=== PATIENT | male | born 1935 | race Caucasian/White ===

== ENCOUNTER → 2017-12-01 | Outpatient (CLI) | payer MEDICARE, OTHER ==
[2017-12-01 10:14] LABS: BASO # 0.1 (0.02-0.10); HEMATOCRIT 45.5 % (42.0-52.0); HEMOGLOBIN 14.8 g/dL (13.5-18.0); LYMPH# 2.1 (1.50-4.00); MEAN CELL VOLUME 89 fl (78-100); MEAN CORPUSCULAR HEMOGLOBIN 29 pg (27-31); MEAN CORPUSCULAR HGB CONC 33 g/dL (33-37); MEAN PLATELET VOLUME 9.8 fl (7.4-10.4); MONO # 0.9 (0.20-0.80); PLATELET COUNT 258 K/mm3 (130-400); RED BLOOD COUNT 5.11 M/mm3 (4.20-5.60); RED CELL DISTRIBUTION WIDTH 13.7 % (11.5-14.5); WHITE BLOOD COUNT 9.8 K/mm3 (4.8-10.8)
[2017-12-01 10:18] LABS: EOS # 0.7 (0.04-0.40); EOS % 7.1 % (0.0-4.0)
[2017-12-01 10:38] LABS: ALBUMIN 4.1 g/dL (3.5-5.0); BUN/CREATININE RATIO 13.9 (6.0-26.0); CALCIUM 9.4 mg/dL (8.4-10.2); POTASSIUM 4.7 mmol/L (3.6-5.0); TOTAL BILIRUBIN 0.6 mg/dL (0.2-1.3); TOTAL PROTEIN 8.3 g/dL (6.3-8.2)
[2017-12-01 11:18] LABS: ERYTHROCYTE SEDIMENTATION RATE 55 mm/hr (0-20)
== END ==
LOC: LAB 10:00
PROVIDERS: Internal Medicine
DX: Z12.5 Encounter for screening for malignant neoplasm of prostate (principal); R05 Cough; E78.2 Mixed hyperlipidemia

== ENCOUNTER → 2018-01-01 | Outpatient (CLI) | payer MEDICARE, OTHER | LOC: LAB 15:48 | DX: S61.309A Unspecified open wound of unspecified finger with damage to nail, initial encounter (principal) ==

== ENCOUNTER → 2018-02-19 | Outpatient (CLI) | payer MEDICARE, OTHER | LOC: RAD 08:21 | DX: M17.11 Unilateral primary osteoarthritis, right knee (principal); M25.461 Effusion, right knee ==

== ENCOUNTER → 2018-02-23 | Outpatient (CLI) | payer MEDICARE, OTHER | LOC: RAD 11:39 | DX: M22.41 Chondromalacia patellae, right knee (principal); M71.21 Synovial cyst of popliteal space [Baker], right knee; S83.241A Other tear of medial meniscus, current injury, right knee, initial encounter; M25.461 Effusion, right knee; Z87.828 Personal history of other (healed) physical injury and trauma ==

== ENCOUNTER → 2018-04-13 | Outpatient (CLI) | payer MEDICARE, OTHER ==
[~2018-04-13] VITALS: Ht 182.9 cm; Wt 87.3 kg
[~2018-04-13] MED LIST: ALEVE220 M1 PO; GLUCOSAMINE PO
[2018-04-13 09:19] LABS: HEMATOCRIT 44.6 % (42.0-52.0); HEMOGLOBIN 14.9 g/dL (13.5-18.0); MEAN CELL VOLUME 88 fl (78-100); MEAN CORPUSCULAR HEMOGLOBIN 29 pg (27-31); MEAN CORPUSCULAR HGB CONC 33 g/dL (33-37); MEAN PLATELET VOLUME 9.8 fl (7.4-10.4); PLATELET COUNT 228 K/mm3 (130-400); RED BLOOD COUNT 5.06 M/mm3 (4.20-5.60); RED CELL DISTRIBUTION WIDTH 13.4 % (11.5-14.5); WHITE BLOOD COUNT 8.5 K/mm3 (4.8-10.8)
[2018-04-13 09:36] LABS: PROTHROMBIN TIME 10.3 SECONDS (9.0-12.0)
[2018-04-13 09:42] LABS: ALBUMIN 4.5 g/dL (3.5-5.0); CALCIUM 9.6 mg/dL (8.4-10.2); TOTAL BILIRUBIN 0.6 mg/dL (0.2-1.3); TOTAL PROTEIN 8.3 g/dL (6.3-8.2)
[2018-04-13 09:50] VITALS: BP 146/78
[2018-04-13 10:19] LABS: LYMPHOCYTE 25 % (20-51); MONOCYTE 3 % (3-10); NEUTROPHILS 52 % (42-75)
[2018-04-13 10:34] LABS: PH-URINE 6.5 (5.0 - 8.0); URINE APPEARANCE CLEAR; URINE COLOR YELLOW
[2018-04-13 10:35] LABS: URINE BILIRUBIN NEGATIVE (NEGATIVE); URINE BLOOD 50 ery/uL (NEGATIVE); URINE GLUCOSE NEGATIVE (NEGATIVE); URINE KETONE NEGATIVE (NEGATIVE); URINE LEUKOCYTE ESTERASE NEGATIVE (NEGATIVE); URINE MUCUS PRESENT (NOT PRESENT); URINE NITRATE NEGATIVE (NEGATIVE); URINE PROTEIN(semi-quant) TRACE mg/dL (NEGATIVE); URINE UROBILINOGEN NORMAL (NORMAL); URINE WBC 0-1 /hpf (0-3)
== END ==
LOC: LAB 08:58
PROVIDERS: Internal Medicine
DX: Z01.818 Encounter for other preprocedural examination (principal); J84.9 Interstitial pulmonary disease, unspecified; M17.0 Bilateral primary osteoarthritis of knee

== ENCOUNTER 2018-06-18 11:30 | Outpatient (RCR) | payer MEDICARE, OTHER ==
[2018-04-13 09:50] VITALS: BP 146/78
== END 2018-08-06 | disposition home or self-care (01) ==
LOC: PT
DX: Z47.1 Aftercare following joint replacement surgery (principal); Z96.651 Presence of right artificial knee joint
CPT/HCPCS: G8978-GP; G8979-GP

== ENCOUNTER → 2019-04-02 | Outpatient (CLI) | payer MEDICARE, OTHER ==
[2018-04-13 09:50] VITALS: BP 146/78
[2019-04-02 10:11] LABS: BASO # 0.1 (0.02-0.10); EOS # 0.4 (0.04-0.40); EOS % 3.7 % (0.0-4.0); HEMATOCRIT 43.4 % (42.0-52.0); HEMOGLOBIN 14.1 g/dL (13.5-18.0); LYMPH# 2.2 (1.50-4.00); MEAN CELL VOLUME 89 fl (78-100); MEAN CORPUSCULAR HEMOGLOBIN 29 pg (27-31); MEAN CORPUSCULAR HGB CONC 33 g/dL (33-37); MEAN PLATELET VOLUME 9.3 fl (7.4-10.4); MONO # 0.9 (0.20-0.80); NEU # 6.3 (1.40-6.50); PLATELET COUNT 270 K/mm3 (130-400); RED BLOOD COUNT 4.86 M/mm3 (4.20-5.60); RED CELL DISTRIBUTION WIDTH 13.2 % (11.5-14.5); WHITE BLOOD COUNT 9.9 K/mm3 (4.8-10.8)
[2019-04-02 10:20] LABS: ALBUMIN 3.9 g/dL (3.4-4.8)
[2019-04-02 10:21] LABS: POTASSIUM 4.3 mmol/L (3.5-5.1)
[2019-04-02 10:22] LABS: CALCIUM 9.8 mg/dL (8.3-10.5)
[2019-04-02 10:23] LABS: TOTAL PROTEIN 8.2 g/dL (6.2-8.1)
[2019-04-02 10:25] LABS: TOTAL BILIRUBIN 0.6 mg/dL (0.2-1.2)
[2019-04-02 10:30] LABS: URINE APPEARANCE CLEAR; URINE BILIRUBIN NEGATIVE (NEGATIVE); URINE BLOOD 50 ery/uL (NEGATIVE); URINE COLOR YELLOW; URINE GLUCOSE NEGATIVE (NEGATIVE); URINE KETONE NEGATIVE (NEGATIVE); URINE LEUKOCYTE ESTERASE NEGATIVE (NEGATIVE); URINE MUCUS PRESENT (NOT PRESENT); URINE NITRATE NEGATIVE (NEGATIVE); URINE PROTEIN(semi-quant) TRACE mg/dL (NEGATIVE); URINE UROBILINOGEN NORMAL (NORMAL); URINE WBC 0-1 /hpf (0-3)
== END ==
LOC: LAB 10:02
PROVIDERS: Physician Assistant
DX: J84.9 Interstitial pulmonary disease, unspecified (principal); M46.84 Other specified inflammatory spondylopathies, thoracic region; I87.8 Other specified disorders of veins; N20.0 Calculus of kidney; I70.0 Atherosclerosis of aorta

== ENCOUNTER → 2019-04-05 | Outpatient (CLI) | payer MEDICARE, OTHER ==
[2018-04-13 09:50] VITALS: BP 146/78
[2019-04-05 15:14] LABS: URINE APPEARANCE HAZY; URINE BILIRUBIN NEGATIVE (NEGATIVE); URINE COLOR YELLOW; URINE GLUCOSE NEGATIVE (NEGATIVE); URINE KETONE NEGATIVE (NEGATIVE); URINE PROTEIN(semi-quant) TRACE mg/dL (NEGATIVE); URINE UROBILINOGEN NORMAL (NORMAL)
[2019-04-05 15:15] LABS: URINE BLOOD 50 ery/uL (NEGATIVE); URINE LEUKOCYTE ESTERASE NEGATIVE (NEGATIVE); URINE MUCUS PRESENT (NOT PRESENT); URINE NITRATE NEGATIVE (NEGATIVE); URINE WBC 0-1 /hpf (0-3)
== END ==
LOC: LAB 14:20
PROVIDERS: Family Medicine
DX: R31.9 Hematuria, unspecified (principal)

== ENCOUNTER → 2019-04-22 | Outpatient (CLI) | payer MEDICARE, OTHER ==
[2018-04-13 09:50] VITALS: BP 146/78
== END | disposition home or self-care (01) ==
LOC: RAD 08:21
DX: M43.16 Spondylolisthesis, lumbar region (principal); M47.816 Spondylosis without myelopathy or radiculopathy, lumbar region; K57.30 Diverticulosis of large intestine without perforation or abscess without bleeding; N20.0 Calculus of kidney; N40.0 Benign prostatic hyperplasia without lower urinary tract symptoms
CPT/HCPCS: Q9967

== ENCOUNTER → 2020-02-03 | Outpatient (CLI) | payer MEDICARE, OTHER ==
[2018-04-13 09:50] VITALS: BP 146/78
[2020-02-03 17:45] LABS: BASO # 0.1 (0.02-0.10); EOS # 0.3 (0.04-0.40); EOS % 3.2 % (0.0-4.0); HEMATOCRIT 42.7 % (42.0-52.0); HEMOGLOBIN 14.2 g/dL (13.5-18.0); LYMPH# 2.5 (1.50-4.00); MEAN CELL VOLUME 89 fl (78-100); MEAN CORPUSCULAR HEMOGLOBIN 30 pg (27-31); MEAN CORPUSCULAR HGB CONC 33 g/dL (33-37); MEAN PLATELET VOLUME 9.7 fl (7.4-10.4); MONO # 0.7 (0.20-0.80); NEU # 4.2 (1.40-6.50); PLATELET COUNT 243 K/mm3 (130-400); RED BLOOD COUNT 4.81 M/mm3 (4.20-5.60); RED CELL DISTRIBUTION WIDTH 13.2 % (11.5-14.5); WHITE BLOOD COUNT 7.8 K/mm3 (4.8-10.8)
[2020-02-03 17:56] LABS: ALBUMIN 4.2 g/dL (3.4-4.8); POTASSIUM 4.4 mmol/L (3.5-5.1)
[2020-02-03 17:57] LABS: CALCIUM 9.3 mg/dL (8.3-10.5)
[2020-02-03 17:58] LABS: TOTAL PROTEIN 7.4 g/dL (6.2-8.1)
[2020-02-03 18:00] LABS: TOTAL BILIRUBIN 0.4 mg/dL (0.2-1.2)
[2020-02-03 18:58] LABS: ERYTHROCYTE SEDIMENTATION RATE 20 mm/hr (0-20)
== END ==
LOC: LAB 17:21
PROVIDERS: Internal Medicine
DX: Z12.5 Encounter for screening for malignant neoplasm of prostate (principal); E78.2 Mixed hyperlipidemia; N20.0 Calculus of kidney

== ENCOUNTER → 2021-03-13 | Outpatient (CLI) | payer MEDICARE, OTHER ==
[2021-03-13 10:36] LABS: BASO # 0.07 K/mm3 (0.02-0.10); EOS # 0.16 K/mm3 (0.04-0.40); EOS % 2.2 % (0.0-4.0); HEMATOCRIT 47.9 % (42.0-52.0); HEMOGLOBIN 15.9 g/dL (13.5-18.0); LYMPH# 1.99 K/mm3 (1.50-4.00); MEAN CELL VOLUME 89 fl (78-100); MEAN CORPUSCULAR HEMOGLOBIN 30 pg (27-31); MEAN CORPUSCULAR HGB CONC 33 g/dL (33-37); MEAN PLATELET VOLUME 9.6 fl (7.4-10.4); MONO # 0.59 K/mm3 (0.20-0.80); NEU # 4.53 K/mm3 (1.40-6.50); PLATELET COUNT 242 K/mm3 (130-400); RED BLOOD COUNT 5.36 M/mm3 (4.20-5.60); RED CELL DISTRIBUTION WIDTH 12.6 % (11.5-14.5); WHITE BLOOD COUNT 7.4 K/mm3 (4.8-10.8)
[2021-03-13 10:40] LABS: ALBUMIN 4.4 g/dL (3.4-4.8)
[2021-03-13 10:41] LABS: POTASSIUM 4.9 mmol/L (3.5-5.1)
[2021-03-13 10:42] LABS: CALCIUM 9.7 mg/dL (8.3-10.5)
[2021-03-13 10:43] LABS: TOTAL PROTEIN 8.2 g/dL (6.2-8.1)
[2021-03-13 10:45] LABS: TOTAL BILIRUBIN 0.6 mg/dL (0.2-1.2)
[2021-03-13 11:34] LABS: ERYTHROCYTE SEDIMENTATION RATE 32 mm/hr (0-20)
== END ==
LOC: LAB 10:16
PROVIDERS: Internal Medicine
DX: Z12.5 Encounter for screening for malignant neoplasm of prostate (principal); G45.9 Transient cerebral ischemic attack, unspecified; K90.9 Intestinal malabsorption, unspecified; Z96.651 Presence of right artificial knee joint; I70.90 Unspecified atherosclerosis

== ENCOUNTER → 2021-03-27 | Outpatient (CLI) | payer MEDICARE, OTHER | LOC: VAS 06:44 → RAD 06:44 | DX: G45.9 Transient cerebral ischemic attack, unspecified (principal) | CPT/HCPCS: A9585 ==

== ENCOUNTER → 2021-03-29 | Outpatient (CLI) | payer MEDICARE, OTHER | LOC: VAS 14:16 → RAD 14:30 | DX: G45.9 Transient cerebral ischemic attack, unspecified (principal); M25.561 Pain in right knee ==

== ENCOUNTER → 2021-05-24 | Outpatient (CLI) | payer MEDICARE, OTHER | LOC: LAB 08:40 | DX: E53.8 Deficiency of other specified B group vitamins (principal) ==

== ENCOUNTER → 2021-09-14 | Outpatient (CLI) | payer MEDICARE, OTHER | LOC: VAS 12:35 → RAD 12:45 | DX: I80.251 Phlebitis and thrombophlebitis of right calf muscular vein (principal); I83.11 Varicose veins of right lower extremity with inflammation ==

== ENCOUNTER → 2021-11-13 | Outpatient (CLI) | payer MEDICARE, OTHER ==
[2021-11-13 12:09] LABS: BASO # 0.04 K/mm3 (0.02-0.10); EOS # 0.14 K/mm3 (0.04-0.40); EOS % 2.1 % (0.0-4.0); HEMATOCRIT 45.2 % (42.0-52.0); HEMOGLOBIN 15.1 g/dL (13.5-18.0); LYMPH# 1.47 K/mm3 (1.50-4.00); MEAN CELL VOLUME 88 fl (78-100); MEAN CORPUSCULAR HEMOGLOBIN 29 pg (27-31); MEAN CORPUSCULAR HGB CONC 33 g/dL (33-37); MEAN PLATELET VOLUME 9.7 fl (7.4-10.4); MONO # 0.83 K/mm3 (0.20-0.80); NEU # 4.32 K/mm3 (1.40-6.50); PLATELET COUNT 187 K/mm3 (130-400); RED BLOOD COUNT 5.14 M/mm3 (4.20-5.60); RED CELL DISTRIBUTION WIDTH 12.7 % (11.5-14.5); WHITE BLOOD COUNT 6.8 K/mm3 (4.8-10.8)
[2021-11-13 12:13] LABS: POTASSIUM 4.4 mmol/L (3.5-5.1)
[2021-11-13 12:14] LABS: CALCIUM 9.8 mg/dL (8.3-10.5)
[2021-11-13 12:16] LABS: TOTAL PROTEIN 8.2 g/dL (6.2-8.1)
[2021-11-13 12:17] LABS: TOTAL BILIRUBIN 0.6 mg/dL (0.2-1.2)
[2021-11-13 12:26] LABS: URINE COLOR AMBER
[2021-11-13 12:27] LABS: URINE APPEARANCE CLEAR; URINE BILIRUBIN NEGATIVE (NEGATIVE); URINE BLOOD 50 ery/uL (NEGATIVE); URINE GLUCOSE NEGATIVE (NEGATIVE); URINE KETONE NEGATIVE (NEGATIVE); URINE LEUKOCYTE ESTERASE NEGATIVE (NEGATIVE); URINE NITRATE NEGATIVE (NEGATIVE); URINE PROTEIN(semi-quant) TRACE (NEGATIVE); URINE UROBILINOGEN NORMAL (NORMAL)
[2021-11-13 12:28] LABS: URINE MUCUS PRESENT (NOT PRESENT)
== END ==
LOC: RAD 11:32
PROVIDERS: Nurse Practitioner Family
DX: K57.30 Diverticulosis of large intestine without perforation or abscess without bleeding (principal); N40.0 Benign prostatic hyperplasia without lower urinary tract symptoms; N32.9 Bladder disorder, unspecified; N20.0 Calculus of kidney; N28.1 Cyst of kidney, acquired; K44.9 Diaphragmatic hernia without obstruction or gangrene; R05.9 Cough, unspecified; Z20.822 Contact with and (suspected) exposure to COVID-19
CPT/HCPCS: Q9967

== ENCOUNTER → 2023-01-07 | Outpatient (CLI) | payer MEDICARE, OTHER ==
[~2023-01-07] MED LIST changes: +AMLODIPINE BESYL5 MG PO; +ASPIRIN E.C. 8181 MG PO; +ATORVASTATIN CA20 MG PO; +FARXIGA10 MG PO; +MULTIVITAMIN1 EACH PO; +NITROGLYCERIN0.4 M1 SL
== END ==
LOC: RAD 09:52
DX: R91.8 Other nonspecific abnormal finding of lung field (principal)

== ENCOUNTER 2023-06-19 12:47 | Emergency (ER) | payer MEDICARE, OTHER ==
[~2023-06-19] VITALS: Wt 68.9 kg
[~2023-06-19 12:47] MED LIST changes: +LOSARTAN POTASS50 M1 PO
[2023-06-19 13:15] VITALS: BP 136/72
[2023-06-19] MEDS ORDERED: Ondansetron 4 MG/2 ML VIAL IV ONE (13:15)
[2023-06-19] MEDS ORDERED: NS 1,000 ML IV SCH (13:15)
[2023-06-19 13:23] LABS: BASO # 0.07 K/mm3 (0.02-0.10); EOS # 0.18 K/mm3 (0.04-0.40); EOS % 1.9 % (0.0-4.0); HEMATOCRIT 41.9 % (42.0-52.0); HEMOGLOBIN 14.1 g/dL (13.5-18.0); LYMPH# 2.39 K/mm3 (1.50-4.00); MEAN CELL VOLUME 94 fl (78-100); MEAN CORPUSCULAR HEMOGLOBIN 32 pg (27-31); MEAN CORPUSCULAR HGB CONC 34 g/dL (33-37); MEAN PLATELET VOLUME 8.9 fl (7.4-10.4); NEU # 5.77 K/mm3 (1.40-6.50); PLATELET COUNT 181 K/mm3 (130-400); RED BLOOD COUNT 4.44 M/mm3 (4.20-5.60); RED CELL DISTRIBUTION WIDTH 12.4 % (11.5-14.5); WHITE BLOOD COUNT 9.3 K/mm3 (4.8-10.8)
[2023-06-19 13:35] LABS: ALBUMIN 3.5 g/dL (3.4-4.8); SODIUM 143 mmol/L (136-145)
[2023-06-19 13:36] LABS: CALCIUM 8.8 mg/dL (8.3-10.5)
[2023-06-19 13:38] LABS: GLUCOSE 116 mg/dL (75-110); TOTAL PROTEIN 6.9 g/dL (6.2-8.1)
[2023-06-19 13:39] LABS: CARBON DIOXIDE 25 mmol/L (23-31); TOTAL BILIRUBIN 1.4 mg/dL (0.2-1.2)
[2023-06-19 13:43] LABS: AST-SGOT 37 U/L (5-34)
[2023-06-19 13:44] LABS: ALT/SGPT 39 U/L (0-55)
[2023-06-19 13:54] LABS: ALCOHOL IN-HOUSE < 10 mg/dL (<10)
[2023-06-19 13:55] LABS: TROPONIN-I 0.119 ng/mL (0.00-0.033)
[2023-06-19 14:08] LABS: LIPASE 1090 U/L (8-78)
[2023-06-19] MEDS ORDERED: Morphine 4 MG/ML VIAL IV ONE (14:15)
[2023-06-19] MEDS ORDERED: Iohexol 300 - 100 ML VIAL IV ONE (14:25)
[2023-06-19] MEDS ORDERED: fentaNYL 100 MCG/2 ML VIAL IV PRN (14:30)
[2023-06-19] MEDS ORDERED: COREG 3.123.125 MG/T PO (16:31)
[2023-06-19] MEDS ORDERED: CLOPIDOGREL PO (16:32)
[2023-06-19] MEDS ORDERED: B-1100 M1 PO (16:33)
== END 2023-06-19 17:01 | disposition other institution (70) ==
LOC: ED 12:47
PROVIDERS: Nurse Practitioner
DX: K85.90 Acute pancreatitis without necrosis or infection, unspecified (principal); R79.89 Other specified abnormal findings of blood chemistry; F10.10 Alcohol abuse, uncomplicated; Y90.0 Blood alcohol level of less than 20 mg/100 ml
CPT/HCPCS: J2270; J2405; J7030; Q9967

== ENCOUNTER 2023-06-19 15:06 | Inpatient (IN) | payer MEDICARE, OTHER ==
[~2023-06-19] VITALS: Ht 185.4 cm; Wt 73.6 kg
[2023-06-19] MEDS ORDERED: Thiamine 100 MG/ML 2 ML VIAL IV SCH (15:29)
[2023-06-19] MEDS ORDERED: Folic Acid 1 MG TAB PO SCH (15:30)
[2023-06-19] MEDS ORDERED: Acetaminophen 500 MG TAB PO PRN (15:30)
[2023-06-19] MEDS ORDERED: fentaNYL 100 MCG/2 ML VIAL IV PRN (15:30)
[2023-06-19] MEDS ORDERED: NS 1,000 ML IV SCH (15:30)
[2023-06-19 15:59] LABS: PARTIAL THROMBOPLASTIN TIME 21.3 SECONDS (21.0-32.0); PROTHROMBIN TIME 11.6 SECONDS (9.0-12.0)
[2023-06-19] MEDS ORDERED: COREG 3.123.125 MG/T PO (16:31)
[2023-06-19] MEDS ORDERED: CLOPIDOGREL PO (16:32)
[2023-06-19] MEDS ORDERED: B-1100 M1 PO (16:33)
[2023-06-19 16:36] VITALS: BP 133/74
[2023-06-19] MEDS ORDERED: Multivitamin TAB PO SCH (17:00)
[2023-06-19 18:05] VITALS: BP 140/77
[2023-06-19] MEDS ORDERED: Ondansetron 4 MG/2 ML VIAL IV PRN (19:15)
[2023-06-19 19:32] LABS: TROPONIN-I 0.143 ng/mL (0.00-0.033)
[2023-06-19 20:30] VITALS: BP 135/72
[2023-06-19] MEDS ORDERED: Atorvastatin 20 MG TAB PO SCH (21:00)
[2023-06-19 22:11] VITALS: BP 138/78
[2023-06-19] MEDS ORDERED: LORazepam 2 MG/ML VIAL IV PRN (23:15)
[2023-06-20] VITALS (13 sets, daily range): BP systolic 107–156; BP diastolic 62–81
[2023-06-20] MEDS ORDERED: NS 1,000 ML IV SCH (00:15)
[2023-06-20 05:55] LABS: BASO # 0.06 K/mm3 (0.02-0.10); EOS # 0.22 K/mm3 (0.04-0.40); EOS % 2.7 % (0.0-4.0); HEMATOCRIT 39.8 % (42.0-52.0); LYMPH# 1.77 K/mm3 (1.50-4.00); MEAN CELL VOLUME 97 fl (78-100); MEAN CORPUSCULAR HEMOGLOBIN 32 pg (27-31); MEAN CORPUSCULAR HGB CONC 33 g/dL (33-37); MEAN PLATELET VOLUME 9.6 fl (7.4-10.4); MONO # 0.49 K/mm3 (0.20-0.80); NEU # 5.58 K/mm3 (1.40-6.50); PLATELET COUNT 162 K/mm3 (130-400); RED CELL DISTRIBUTION WIDTH 12.7 % (11.5-14.5); WHITE BLOOD COUNT 8.2 K/mm3 (4.8-10.8)
[2023-06-20 06:48] LABS: ALBUMIN 3.1 g/dL (3.4-4.8)
[2023-06-20 06:50] LABS: CALCIUM 8.2 mg/dL (8.3-10.5)
[2023-06-20 06:51] LABS: TOTAL PROTEIN 6.2 g/dL (6.2-8.1)
[2023-06-20 06:53] LABS: TOTAL BILIRUBIN 1.6 mg/dL (0.2-1.2)
[2023-06-20 07:35] LABS: TROPONIN-I 0.124 ng/mL (0.00-0.033)
[2023-06-20] MEDS ORDERED: Pantoprazole 40 MG in NS 10 ML IV SCH (09:00)
[2023-06-20] MEDS ORDERED: amLODIPine 5 MG TAB PO SCH (09:00)
[2023-06-20] MEDS ORDERED: Empagliflozin 10 MG TAB PO SCH (09:00)
[2023-06-20] MEDS ORDERED: Losartan 50 MG TAB PO SCH (09:00)
[2023-06-21] VITALS (18 sets, daily range): BP systolic 93–125; BP diastolic 51–72
[2023-06-21] MEDS ORDERED: NS 1,000 ML IV SCH (04:30)
[2023-06-21] MEDS ORDERED: dilTIAZem 25 MG/5 ML VIAL IV ONE ×2 (04:30→05:15)
[2023-06-21] MEDS ORDERED: AMIODARONE IV SCH ×2 (08:45→14:45)
[2023-06-21] MEDS ORDERED: D5W IV SCH ×2 (08:45→14:45)
[2023-06-21] MEDS ORDERED: Thiamine 100 MG TAB PO SCH (09:00)
[2023-06-21] MEDS ORDERED: Carvedilol 3.125 MG TAB PO SCH (19:23)
[2023-06-22 00:07] VITALS: BP 115/61
[2023-06-22 04:24] VITALS: BP 145/69
[2023-06-22 06:00] VITALS: BP 118/71
[2023-06-22 08:20] VITALS: BP 115/60
[2023-06-22] MEDS ORDERED: PANTOPRAZOLE SO40 MG PO (09:59)
[2023-06-22 10:28] VITALS: BP 96/55
== END 2023-06-22 11:00 | disposition home or self-care (01) | DRG 438 ==
LOC: MED/SURG 15:06
PROVIDERS: ADMIT Nurse Practitioner
DX: K85.90 Acute pancreatitis without necrosis or infection, unspecified (principal); E43 Unspecified severe protein-calorie malnutrition; I42.0 Dilated cardiomyopathy; I48.0 Paroxysmal atrial fibrillation; I50.9 Heart failure, unspecified; N18.9 Chronic kidney disease, unspecified; F03.90 Unspecified dementia, unspecified severity, without behavioral disturbance, psychotic disturbance, mood disturbance, and anxiety; I25.10 Atherosclerotic heart disease of native coronary artery without angina pectoris; F10.20 Alcohol dependence, uncomplicated; Z68.21 Body mass index [BMI] 21.0-21.9, adult; Z79.82 Long term (current) use of aspirin
CPT/HCPCS: A9270; C9113; J0282; J2060; J2405; J3010; J3360; J3411; J7030; J7060